=== PATIENT | female | born 1945 | race Caucasian/White ===

== ENCOUNTER 2017-09-05 09:57 | Emergency (ER) | END 2017-09-05 15:38 | disposition home or self-care (01) ==

== ENCOUNTER 2018-10-07 09:30 | Inpatient (IN) | payer OTHER ==
[2018-10-03 10:33] VITALS: Ht 170.2 cm; Wt 50.8 kg
[2018-10-07] VITALS (33 sets, daily range): BP systolic 112–186; BP diastolic 46–69; PULSE 54–108; RESP 12–23
[~2018-10-07] VITALS: Ht 170.2 cm; Wt 50.8 kg
--- NOTE | 2018-10-07 05:48 | HPN ---
Date/Time of Note Date/Time of Note DATE: 10/07/18 TIME: 05:48 Interval H&P Admission Note Pt. seen H&P reviewed: No system changes HOLDEN LÓPEZ MD Oct 07, 2018 05:48
--- NOTE | 2018-10-07 05:52 | OPR ---
Date/Time of Note Date/Time of Note DATE: 10/07/18 TIME: 05:48 Operative Report Procedure Date: Oct 07, 2018 Preoperative Diagnosis Right shoulder displaced proximal humerus fracture with rotator cuff tear Postoperative Diagnosis 1. Right shoulder displaced proximal humerus fracture, intra-articular 2. Right shoulder massive, unrepairable rotator cuff tear following fracture Operation/Procedure Performed 1. Right reverse total shoulder replacement 2. Injection of PRP solution in humeral canal Surgeon see signature line Bill Adjuster Yung London PA-C Anesthesia Type: general Estimated Blood Loss: 100 - 150 ml's Transfusion none Specimen None Grafts/Implants See op note Complications none Pt Condition Post Procedure: stable Disposition: PACU Procedure Description EDUCATION PROFESSOR SURGEON: Yung London PA-C was asked to be present for this case at my request. Assistance was necessary as a result of the highly technical nature of this operation. When performing an open total shoulder replacement, it is critical to have a trained practice assistant who is an expert in handling the extremity and assisting the surgeon in tasks such as manipulation of the arm, protection of the neurovascular structures and positioning the implants. This assistance cannot be performed by a technician anatomic pathology, as it is considered an integral part of the procedure and the practice assistant should be compensated for their time. PROCEDURE IN DETAIL: Following the administration of general anesthesia supplemented with a peripheral nerve block for postoperative pain control, the patient was examined under anesthesia. Examination of the right shoulder revealed severe stiffness and fullness consistent with the chronic superior subluxation of the humeral head and displacement of the fracture. The right forearm was then prepped and 60 cc of blood were aspirated from the antecubital fossa. The blood was then transferred to the labor service representative from the company for preparation of the PRP solution. The patient was then placed in the beach chair position. Sterile prep and drape was then undertaken. An extended deltopectoral incision was then carried through the interval exposing the conjoined tendon and retracting it medially. There was extensive scarring from the fracture with complete superior s ubluxation of the head and disruption of the superior rotator cuff. The subscapularis was noted to be partially disrupted superiorly. The remaining subscapularis was then detached and the humeral head removed. The humerus was retracted and the glenoid was exposed. Peripheral osteophytes were removed and a complete capsulectomy performed. The central canal of the glenoid was then entered and prepared for a standard Depuy baseplate. The canal was irrigated and half of the PRP solution was placed in the glenoid canal. A standard Depuy baseplate was then applied with four peripheral screws and solid fixation. A 38 mm glenosphere was then applied, with solid fixation. The humerus was then reamed and prepared for a 10mm humeral component with a standard metaphyseal component. The canal was thoroughly irrigated and the remaining PRP solution was then placed in the medullary canal. The actual components were implanted with solid fixation along with a 3 mm liner. The arm was taken through full range of motion with no evident instability. The joint was then thoroughly irrigated, the deep tissues were approximated using #1 suture followed by closure of the deep layer using 2-0 Monocryl. The skin was closed using 4-0 Monocryl suture, and a Prenio dressing. An Ultrasling was then applied. The patient was awakened and transported to the recovery room in stable condition. Estimated blood loss for this procedure was 150 cc. Radiographs will be obtained in the recovery room. HOLDEN LÓPEZ MD Oct 07, 2018 05:52
[~2018-10-07 09:30] MED LIST: ALEN1TAB PO; BUPIVACAINE 0.5% (SDV) 30 ML, morphine SULFATE (PF) 8 MG, EPINEPHrine 0.3 MG, KETOROLAC... IRR SCH; CEFAZOLIN 2 GM/50 ML (PMX) 50 ML IVPB ONE; DEXAMETHASONE 1 MG TAB PO ONE; EPHEDrine SULFATE 50 MG/5 ML SYG ONE; GABAPENTIN 300 MG CAP PO ONE; GLYCOPYRROLATE 0.4 MG INJ ONE; NEOSTIGMINE 3 MG/3 ML SYRINGE ONE; OMEP20CA16 PO; PRAV20TA63 PO; TRANEXAMIC ACID 1,000 MG in DEXTROSE 5% 100 ML IVPB ONE
[2018-10-07] MEDS ORDERED: FENO160T13 PO (11:53)
[2018-10-07] MEDS ORDERED: ESCI20TA PO (11:53)
[2018-10-07] MEDS ORDERED: ALEN70TA5 PO (11:54)
[2018-10-07] MEDS ORDERED: PROPOFOL 20 ML ONE (12:00)
[2018-10-07] MEDS ORDERED: ROCURONIUM 50 MG INJ ONE (12:00)
[2018-10-07] MEDS ORDERED: CEFAZOLIN 1 GM INJ ONE (12:00)
[2018-10-07] MEDS ORDERED: FENTAnyl 50 MCG/ML VIAL ONE (12:01)
[2018-10-07] MEDS ORDERED: MIDAZOLAM 1 MG/ML 2 ML INJ ONE (12:01)
[2018-10-07] MEDS ORDERED: ROPIVACAINE 0.5 % 30 ML VIAL ONE (12:01)
--- NOTE | 2018-10-07 12:11 | PREAC ---
Date/Time of Note Date/Time of Note DATE: 10/07/18 TIME: 12:09 Anesthesia Eval and Record Evaluation Time Pre-Procedure Interview DATE: 10/07/18 TIME: 12:09 Age 73 Sex female NPO: 8 hrs Preoperative diagnosis Right Shoulder OA and Rotator cuff tear Planned procedure Right Reverse Total Shoulder Replacement Past Medical History Past Medical History: Includes Cardio: Dyslipidemia Musculoskeletal: Osteoarthritis Surgery & Anesthesia Issues No known issue Meds Anticoagulation: No Beta Courtney within 24 hr: No Reason Beta Courtney not given: Pt. not on B-Courtney Reported Medications Alendronate Sodium* (Fosamax*) 70 Mg Tablet, 70 MG PO EVERY SATURDAY, #4 TAB 10/07/18 Escitalopram Oxalate* (Lexapro*) 20 Mg Tablet, 20 MG PO DAILY, #30 TAB 10/07/18 Fenofibrate, Micronized* (Fenofibrate*) 160 Mg Tablet, 160 MG PO DAILY, TAB 10/07/18 Pravastatin Sodium* (Pravastatin Sodium*) 20 Mg Tablet, 20 MG PO HS, TAB 10/03/18 Discontinued Reported Medications Omeprazole* (Omeprazole*) 20 Mg Capsule.dr, 20 MG PO DAILY, #30 CAP 10/03/18 Alendronate Sodium/Vitamin D3 (Fosamax Plus D 70 mg-5,600 Iu) 1 Each Tablet, 1 EACH PO, TAB 10/03/18 Discontinued Scripts Tramadol HCl (Tramadol HCl) 50 Mg Tablet, 50 MG PO Q4 PRN for PAIN, #15 TAB Prov:RAINA PECK MD 09/05/17 Ibuprofen* (Motrin*) 400 Mg Tab, 400 MG PO Q6, #20 TAB Prov:RAINA PECK MD 09/05/17 Current Medications Bupivacaine HCl/ Morphine Sulfate/ Epinephrine/ Ketorolac Tromethamine/ Clonidine/Sodium Chloride/ Vancomycin HCl INTRA-OP IRR ; Start 10/07/18 at 08:00 Influenza Virus Vaccine Quadrival (Fluzone) 0.5 ml ONCE ONCE IM* ; Start 10/09/18 at 10:00; Stop 10/09/18 at 10:01 Meds reviewed: Yes Allergies Coded Allergies: No Known Allergy (Unverified , 10/07/18) Allergies Reviewed: Yes Labs/Studies Labs Reviewed: Reviewed by anesthesiologist test: N/A Studies: ECG (n/a), CXR (n/a) Pre-procedure Exam Airway: Adequate mouth opening, Adequate thyromental dist Mallampati: Mallampati II Teeth: Normal Lung: Normal Heart: Normal ASA Physical Status ASA physical status: 2 Emergency: None Planned Anesthetic General/MAC: ETT Nerve block: Brachial plexus (left) Planned Pain Management Single shot nerve block, Parenteral pain med Pre-operative Attestations Prior to commencing anesthesia and surgery, the patient was re-evaluated, there was verification of: *The patient's identity *The results of appropriate recent lab work and preoperative vital signs *The above evaluation not changing prior to induction *Anesthetic plan, risk benefits, alternative and complications discussed with patient/family; questions answered; patient/family understands, accepts and wishes to proceed. FERN PRINCE MD Oct 07, 2018 12:11
[2018-10-07] MEDS ORDERED: FENTAnyl 50 MCG/ML VIAL IV PRN ×2 (13:00)
[2018-10-07] MEDS ORDERED: OXYCODONE/ACETAMINOPHEN (5/325) TAB PO PRN (13:00)
[2018-10-07] MEDS ORDERED: ONDANSETRON 4 MG INJ IV PRN ×2 (13:00→14:30)
[2018-10-07] MEDS ORDERED: LABETALOL HCL 20MG INJ IV PRN (13:00)
[2018-10-07] MEDS ORDERED: EPHEDrine SULFATE 50 MG/5 ML SYG IV PRN (13:00)
[2018-10-07] MEDS ORDERED: METOCLOPRAMIDE 10 MG INJ IV PRN (13:00)
[2018-10-07] MEDS ORDERED: HYDROmorphONE 1 MG/5 ML IV SYRINGE IV PRN (13:00)
[2018-10-07] MEDS ORDERED: hydrALAzine 20 MG INJ IV PRN (13:00)
[2018-10-07] MEDS ORDERED: CA CHLORIDE (GM) 10% 10 ML INJ ONE (13:16)
[2018-10-07] MEDS ORDERED: THROMBIN (BOVINE) 5,000 UNIT VIAL TP ONE (13:16)
[2018-10-07] MEDS ORDERED: POLYMYXIN/BACITRACIN 1L IRRIG ONE (13:17)
[2018-10-07] MEDS ORDERED: METOCLOPRAMIDE 10 MG INJ ONE (13:50)
[2018-10-07] MEDS ORDERED: ONDANSETRON 4 MG INJ ONE (13:50)
[2018-10-07] MEDS ORDERED: DEXAMETHASONE 4 MG/ML 5 ML INJ ONE (13:50)
[2018-10-07] MEDS ORDERED: KETOROLAC 30 MG INJ ONE (13:50)
[2018-10-07] MEDS ORDERED: PHENYLephrine (100 MCG/ML) 5ML SYG ONE (13:51)
--- NOTE | 2018-10-07 14:22 | PDOCDIS ---
Discharge Instructions DIAGNOSIS Discharge Diagnosis Cuff tear arthropathy CONDITION [id number] Patient Condition: [id number] Good HOME CARE INSTRUCTIONS: [id number] Diet Instructions: [id number] Regular ACTIVITY: [id number] Activity Restrictions: [id number] Slowly Increase Activity Keep Limb Elevated [id number] Bathing Restrictions: Aokkw5l Shower FOLLOW UP/APPOINTMENTS Follow-up Plan two weeks SCHOOL/WORK RELEASE May return to School/Work with: With Restrictions School/Work Release Comment: Sling and 5 lb table top usage for six weeks HOLDEN LÓPEZ MD Oct 07, 2018 14:22
[2018-10-07] MEDS ORDERED: HYDROmorphONE 1 MG/ML SYG IV PRN (14:30)
[2018-10-07] MEDS ORDERED: MAGNESIUM HYDROXIDE 30ML CUP PO PRN (14:30)
[2018-10-07] MEDS ORDERED: TRANEXAMIC ACID 1,000 MG in SOD CHLORIDE 0.9% 100 ML IVPB ONE (14:30)
[2018-10-07] MEDS ORDERED: oxyCODONE 5 MG TAB PO PRN ×2 (14:30)
[2018-10-07] MEDS ORDERED: DIPHENHYDRAMINE 50 MG INJ IV PRN (14:30)
[2018-10-07] MEDS ORDERED: NACL 0.9% 3 ML SYG IV SCH (14:30)
[2018-10-07] MEDS ORDERED: LOPERAMIDE 2 MG CAP PO PRN (14:30)
[2018-10-07] MEDS ORDERED: ZOLPIDEM 5 MG TAB PO PRN (14:30)
[2018-10-07] MEDS ORDERED: KETOROLAC 15 MG INJ IV PRN (14:30)
--- NOTE | 2018-10-07 14:40 | PAC ---
Date/Time of Note Date/Time of Note DATE: 10/07/18 TIME: 14:40 Post-Anesthesia Notes Post-Anesthesia Note Last documented vital signs Vital Signs Date Temp Pulse Resp B/P (MAP) Pulse Ox O2 O2 Flow FiO2 Time Delivery Rate 10/07/18 97.9 92 18 136/62 95 Room Air 14:40 (86) Activity: WNL Respiratory function: WNL Cardiovascular function: WNL Mental status: Baseline Pain reasonably controlled: Yes Hydration appropriate: Yes Nausea/Vomiting absent: Yes FERN PRINCE MD Oct 07, 2018 14:40
[2018-10-07] MEDS ORDERED: HYDROCORTISONE 100 MG INJ ONE (15:01)
[2018-10-07] MEDS ORDERED: hydrALAzine 20 MG INJ ONE (15:01)
[2018-10-07] MEDS ORDERED: LABETALOL HCL 20MG INJ ONE (15:02)
[2018-10-07] MEDS ORDERED: DIPHENHYDRAMINE 50 MG INJ ONE (15:05)
[2018-10-07] MEDS: CEFAZOLIN 1 GM/50 ML (PMX) 50 ML IVPB SCH ×2 (15:19→21:17)
[2018-10-07] MEDS: HYDROmorphONE 1 MG/5 ML IV SYRINGE IV PRN ×2 (15:24→15:42)
--- NOTE | 2018-10-07 16:10 | NUR ---
PACU PT AWAKE ALERT ORIENTED VS STABLE PAIN UNDER CONTROL LT AC IV SITE CLEAR LT AC IV SITE CLEAR REPORT GIVEN FÁTIMA LYLE
--- NOTE | 2018-10-07 17:30 | NUR ---
ADMISSION NOTES RECEIVED PT IN BED, IN STABLE CONDITION, ALERT AND ORIENTED X 4, NOTED WITH SOME FORGETFULNESS, ABLE TO VERBALIZE NEEDS. PT WITH COMPLAINT OF DISCOMFORT AT THIS TIME. NOTED WITH SLING IN PLACE ON RIGHT SHOULDER. PT VERBALIZED WITH SENSATION ON RIGHT ARM, DENIES NUMBNESS, NO TINGLING AND GOOD CIRCULATION NOTED. PT ORIENTED TO ROOM, UNIT, VISITING HOURS, USE OF CALL LIGHT AND PT VERBALIZED UNDERSTANDING. PT WITH LAC G#22 INTACT AND PATENT. PLACED BED IN LOW POSITION, BED ALARM ON AND CALL LIGHT WITHIN EASY REACH. WILL CONTINUE TO MONITOR PT.
[2018-10-07] MEDS: DEXAMETHASONE 2 MG TAB PO SCH ×2 (18:06→23:38)
[2018-10-07] MEDS: ACETAMINOPHEN 500 MG TAB PO SCH ×2 (18:07→23:38)
--- NOTE | 2018-10-07 18:32 | NUR ---
END OF SHIFT NOTES PATIENT IN BED, TOLERATING FOOD INTAKE AT THIS TIME, WITH C/O RIGHT SHOULDER PAIN AT 7/10, ALL DUE MEDICATION GIVEN, PAIN MANAGED WITH TORADOL 15MG VIA IV PUSH. ICE PACK PLACED ON RIGHT SHOULDER FOR COMFORT. PT RECEIVING O2 VIA NC @ 2LPM. ALL PATIENT'S NEEDS ATTENDED TO. KEPT PT CLEAN AND DRY. PLACED CALL LIGHT WITHIN EASY REACH.
[2018-10-07] MEDS: oxyCODONE 5 MG TAB PO PRN (19:41)
[2018-10-07] MEDS ORDERED: GABAPENTIN 300 MG CAP PO SCH (21:00)
[2018-10-07] MEDS ORDERED: ATORVASTATIN 10 MG TAB PO SCH (21:00)
[2018-10-07] MEDS: SENNA/DOCUSATE NA (8.6MG/50MG) TAB PO SCH (21:09)
[2018-10-08 01:04] VITALS: BP 110/54; PULSE 90; RESP 18
[2018-10-08] MEDS: DEXAMETHASONE 2 MG TAB PO SCH (05:20)
[2018-10-08] MEDS: oxyCODONE 5 MG TAB PO PRN ×2 (05:20→09:17)
[2018-10-08] MEDS: CEFAZOLIN 1 GM/50 ML (PMX) 50 ML IVPB SCH (05:23)
[2018-10-08] MEDS: ACETAMINOPHEN 500 MG TAB PO SCH (05:24)
--- NOTE | 2018-10-08 05:26 | PN ---
Date/Time of Note Date/Time of Note DATE: 10/08/18 TIME: 05:25 Subjective Doing well and comfortable this morning Objective Vitals Vital Signs Date Temp Pulse Resp B/P (MAP) Pulse Ox O2 O2 Flow FiO2 Time Delivery Rate 10/08/18 98.8 90 18 110/54 94 Nasal 2.0 01:04 (72) Cannula Intake and Output 10/07/18 10/07/18 10/08/18 1515:00 23:00 07:00 IntakeIntake Total 1200 ml 440 ml OutputOutput Total 10 ml 650 ml BalanceBalance 1190 ml -210 ml Wound is clean and dry. Neurologically intact. No signs of DVT. Medications Medications Current Medications Bupivacaine HCl/ Morphine Sulfate/ Epinephrine/ Ketorolac Tromethamine/ Clonidine/Sodium Chloride/ Vancomycin HCl INTRA-OP IRR ; Start 10/07/18 at 08:00 Influenza Virus Vaccine Quadrival (Fluzone) 0.5 ml ONCE ONCE IM* ; Start 10/09/18 at 10:00; Stop 10/09/18 at 10:01 Escitalopram Oxalate (Lexapro) 20 mg DAILY PO ; Start 10/08/18 at 09:00 Fenofibrate (Tricor) 145 mg DAILY PO ; Start 10/08/18 at 09:00 Atorvastatin Calcium (Lipitor) 10 mg HS PO Last administered on 10/07/18at 21:09; Admin Dose 10 MG; Start 10/07/18 at 21:00 Cefazolin Sodium 50 ml @ 100 mls/hr Q8H IVPB Last administered on 10/08/18at 05:23; Admin Dose 100 MLS/HR; Start 10/07/18 at 14:30; Stop 10/08/18 at 06:59 Senna/Docusate Sodium (Senokot-S) 1 tab BID PO Last administered on 10/07/18at 21:09; Admin Dose 1 TAB; Start 10/07/18 at 21:00 Simethicone (Mylicon) 80 mg TID PRN PO .GAS; Start 10/07/18 at 14:30 Magnesium Hydroxide (Milk Of Mag) 30 ml BID PRN PO .CONSTIPATION; Start 10/07/18 at 14:30 Loperamide HCl (Imodium Cap) 2 mg Q6H PRN PO .DIARRHEA; Start 10/07/18 at 14:30 Dexamethasone (Decadron) 2 mg Q6 PO Last administered on 10/08/18at 05:20; Admin Dose 2 MG; Start 10/07/18 at 18:00; Stop 10/08/18 at 12:01 Gabapentin (Neurontin) 300 mg HS PO Last administered on 10/07/18at 21:09; Admin Dose 300 MG; Start 10/07/18 at 21:00 Acetaminophen (Tylenol Tab) 500 mg Q6 PO Last administered on 10/07/18at 23:38; Admin Dose 500 MG; Start 10/07/18 at 18:00 Oxycodone HCl (Roxicodone) 15 mg Q4H PRN PO .PAIN; Start 10/07/18 at 14:30 Oxycodone HCl (Roxicodone) 10 mg Q4H PRN PO .PAIN Last administered on 10/08/18at 05:20; Admin Dose 10 MG; Start 10/07/18 at 14:30 Oxycodone HCl (Roxicodone) 5 mg Q4H PRN PO .PAIN; Start 10/07/18 at 14:30 Hydromorphone HCl (Dilaudid) 1 mg Q4H PRN IV .BREAKTHROUGH PAIN; Start 10/07/18 at 14:30 Ketorolac Tromethamine (Toradol) 15 mg Q6H PRN IV .PAIN Last administered on 10/07/18at 18:07; Admin Dose 15 MG; Start 10/07/18 at 14:30 Ondansetron HCl (Zofran Inj) 4 mg Q6H PRN IV NAUSEA/VOMITING; Start 10/07/18 at 14:30 Diphenhydramine HCl (Benadryl) 25 mg Q6H PRN IV .PRURITUS; Start 10/07/18 at 14:30 Zolpidem Tartrate (Ambien) 10 mg HS PRN PO .INSOMNIA; Start 10/07/18 at 14:30 IV Flush (NS 3 ml) 3 ml per protocol IV ; Start 10/07/18 at 14:30 VTE Prophylaxis Risk score (from Nsg)>0 risk: 8 SCD applied (from Ns): Yes Lines/Catheters IV Catheter Type: Saline Lock Humphries in Place: No Assessment/Plan Assessment/Plan Assessment: Status post total shoulder replacement Plan: Begin PT this morning discharge after PT HOLDEN LÓPEZ MD Oct 08, 2018 05:26
--- NOTE | 2018-10-08 05:26 | DS ---
Date/Time of Note Date/Time of Note DATE: 10/08/18 TIME: 05:26 Discharge Summary Admission/Discharge Info Admit Date/Time Oct 07, 2018 at 10:46 Discharge Date/Time October 08, 2018 Discharge Diagnosis Cuff tear arthropathy Patient Condition: Good Hospital Course Admitted and underwent uncomplicated procedure. Discharged after therapy. Home Meds Reported Medications Alendronate Sodium* (Fosamax*) 70 Mg Tablet, 70 MG PO EVERY SATURDAY, #4 TAB 10/07/18 Escitalopram Oxalate* (Lexapro*) 20 Mg Tablet, 20 MG PO DAILY, #30 TAB 10/07/18 Fenofibrate, Micronized* (Fenofibrate*) 160 Mg Tablet, 160 MG PO DAILY, TAB 10/07/18 Pravastatin Sodium* (Pravastatin Sodium*) 20 Mg Tablet, 20 MG PO HS, TAB 10/03/18 Discontinued Reported Medications Omeprazole* (Omeprazole*) 20 Mg Capsule.dr, 20 MG PO DAILY, #30 CAP 10/03/18 Alendronate Sodium/Vitamin D3 (Fosamax Plus D 70 mg-5,600 Iu) 1 Each Tablet, 1 EACH PO, TAB 10/03/18 Discontinued Scripts Tramadol HCl (Tramadol HCl) 50 Mg Tablet, 50 MG PO Q4 PRN for PAIN, #15 TAB Prov:RAINA PECK MD 09/05/17 Ibuprofen* (Motrin*) 400 Mg Tab, 400 MG PO Q6, #20 TAB Prov:RAINA PECK MD 09/05/17 Follow-up Plan two weeks Primary Care Provider Not On Staff Doctor HOLDEN LÓPEZ MD Oct 08, 2018 05:26
--- NOTE | 2018-10-08 06:31 | NUR ---
EOSS: Patient AOX4, stable hemodynamically, afebrile, on oxygen @2 lit/min via n/c with O2SAT up to 99%. Currently patient resting comfortably in the bed with eyes open in no distress. Pain controlled with Oxycodone 10 mg PO with good relief. Fall and injury and pressure ulcer precautions observed during the shift, patient was able to ambulate to the bathroom with assistance. Patient Instructed to call for assistance. All scheduled medications administered per MD orders. All patient's needs attended. Patient's friend at bedside, supportive. Continuous monitoring provided. Will report to the next shift.
[2018-10-08 08:25] VITALS: BP 123/62; PULSE 94; RESP 18
[2018-10-08] MEDS: SENNA/DOCUSATE NA (8.6MG/50MG) TAB PO SCH (08:31)
[2018-10-08] MEDS ORDERED: ESCITALOPRAM 10 MG TAB PO SCH (09:00)
[2018-10-08] MEDS ORDERED: FENOFIBRATE 145 MG TAB PO SCH (09:00)
--- NOTE | 2018-10-08 10:20 | NUR ---
PT evaluation Therapy day number 1 Evaluation Start Time 10:20 Evaluation End Time 11:00 Evaluation Total Time 40 min Subjective Current complaint of pain Pain Scale NUMERIC Pain Intensity 8 (0-10) Patient Stated Goal for Pain Relief 0 (0-10) Pain Level Comment R shoulder pain "burning" Pre Treatment Vital Signs Stable Yes Exercise Assessment Label Right Upper Extremity Exercise Type Passive ROM Additional Exercise Comments patient educated on pendulum ther-ex, AROM elbow, wrist, hand Supine to Sit Modified Independent Transfer Sit to Stand Ability Modified Independent Bed Mobility Sit to Supine Modified Independent Bed Transfer Ability Modified Independent Chair Transfer Ability Modified Independent Additional Mobility Comments with no AD Gait Assist Levels Modified Independent Assistive Devices None Ambulation Distance 300 feet Weight Bearing Assessment Label Right Upper Extremity Weight Bearing Status Weight Bearing as Bruno Static Sitting Balance Good Dynamic Sitting Balance Good Standing Static Balance Good Dynamic Standing Balance Good Safety Judgement Good Activity Tolerance Good Equipment Present A pump IV pump Additional Equipment Present shoulder sling present Post Treatment Pain Intensity 8 0-10 Additional Post Treatment Comment See note Total Minutes 40 Total Units 3 PT Technical Record Comment 73 yo female presents s/p R reverse total shoulder replacement secondary to OA and rotator cuff tear. PMH: dyslipidemia, osteoarthritis Precaution: Fall risk, RUE WBAT PLOF: Patient lives in apartment with dog, stair access. Ambulates with no AD previously mod I, reports frequent falls. S: patient in bed, agreeable to PT evaluation. Pt cleared for activity per RN O: PT evaluation completed, pt returned back to bed following therapy intervention with all needs met and family present at bedside. Spoke to RN regarding pt response to activity and PT plan of care. Patient educated on TSA protocol, HEP, precautions, and recovery. No reports of increased pain, or onset of dizziness, or shortness of breath with activity. Precautions maintained with treatment intervention A: Patient demonstrates strong mobility throughout with receptiveness to PT education and mobility. Patient demonstrates mild impulsiveness throughout but good obstacle and safety awareness with no limitations to mobility. Patient demonstrates good ability to perform pendulums and R elbow and wrist ther-ex. Patient otherwise demonstrates baseline functional mobility and thus does not require skilled inpatient PT at this time. P: Discharge physical therapy Recommendation: No DME recommended at this time, patient may benefit from HHPT post hospitalization when medically cleared by
--- NOTE | 2018-10-08 11:00 | NUR ---
Patient is alert and oriented x4, able to make needs known; PRN Roxicodone given as needed for pain with good effectiveness noted; no SOB/respiratory distress noted, IS encouraged; ambulates with assist; cleared by PT for discharge; kept clean, dry and comfortable; VSS; call light placed within reached; all needs attended.
--- NOTE | 2018-10-08 12:00 | NUR ---
SLEEVE SETTER SAFETY STITCH NOTES: Discharged patient to home via wheelchair accompanied by friend; all discharge instructions given and patient verbalized understanding; all home medication prescription and instruction given by Dr. Jean pre-op; IV Line was discontinued with tip intact; all needs attended; to follow-up with Primary MD and Dr. Jean in 1-2 weeks.
[2018-10-09] MEDS ORDERED: INFLUENZA VIRUS VACCINE 0.5 ML (DISPENSING) IM* ONE (10:00)
== END 2018-10-08 11:59 | disposition home or self-care (01) | DRG 483 ==
LOC: EDSTATUS 09:30 → REC 10:46 → MS1 17:33
PROVIDERS: ADMIT Orthopaedic Surgery; ATTEND Orthopaedic Surgery
PROC: 0RRJ00Z Replacement of Right Shoulder Joint with Reverse Ball and Socket Synthetic Substitute, Open Approach (ICD-10-PCS; principal; 2018-10-07 14:30)
DX: S42.201A Unspecified fracture of upper end of right humerus, initial encounter for closed fracture (principal); M75.101 Unspecified rotator cuff tear or rupture of right shoulder, not specified as traumatic; W18.30XA Fall on same level, unspecified, initial encounter
CPT/HCPCS: 86999; 88304; 88311; 97161; C1776; J0360; J0690; J1100; J1170; J1200; J1720; J1885; J2250; J2370; J2405; J2710; J2765; J2795; J3010